=== PATIENT | male | born 1965 | race Two or more races ===

== ENCOUNTER 2018-03-19 18:22 | Emergency (ER) | payer MEDICAID, OTHER ==
[~2018-03-19] VITALS: Ht 167.6 cm; Wt 65.8 kg
[2018-03-19] MEDS ORDERED: SODIUM CHLORIDE 0.9% 1,000 ML IV ONE (18:49)
[2018-03-19] MEDS: SODIUM CHLORIDE 0.9% 1,000 ML IV ONE ×2 (18:56→19:15)
[2018-03-19] MEDS ORDERED: LORazepam 2MG/ML-1ML VIAL IV ONE (19:00)
[2018-03-19] MEDS ORDERED: ASPirin 81 mg TAB PO ONE (19:15)
[2018-03-19 19:23] LABS: Basophils # (auto) 0 uL; Basophils % (auto) 0.4 % (0.0-2.0); Eosinophils # (auto) 0.1 uL; Eosinophils % (auto) 2.1 % (0.0-7.0); Hematocrit 44.3 % (41.0-53.0); Hemoglobin 15.1 g/dL (13.5-17.5); Lymphocytes # (auto) 1.2 uL; Lymphocytes % (auto) 27.9 % (10.0-50.0); Mean Corpuscular Hemoglobin 31.4 pg (28.0-32.0); Mean Corpuscular Hgb Conc. 34.1 g/dL (32.0-36.0); Monocytes # (auto) 0.3 uL; Neutrophils # (auto) 2.8 uL; Neutrophils % (auto) 63.6 % (37.0-80.0); Platelet Count (auto) 145 10^3/uL (140-450); Red Blood Cells 4.81 10^6/uL (4.5-5.90); Red Cell Distribution Width 13.6 % (11.8-14.3); White Blood Cell 4.4 10^3/uL (4.4-10.8)
[2018-03-19 19:29] VITALS: BP 108/71
[2018-03-19 19:33] LABS: Alanine Aminotransferase 21 U/L (16-61); Albumin 4.4 g/dL (3.4-5.0); Anion Gap 10 (5-15); Aspartate Aminotransferase 11 U/L (15-37); BUN/Creatinine Ratio 21.8; Blood Alcohol < 3.0 mg/dL (0-5); Blood Urea Nitrogen 19 mg/dL (7-18); Calcium 8.7 mg/dL (8.5-10.1); Carbon Dioxide 22 mmol/L (21-32); Chloride 104 mmol/L (98-107); GFR African American 119 mL/min; GFR Non-African American 98 mL/min; Glucose 138 mg/dL (74-106); Sodium 136 mmol/L (136-145)
[2018-03-19 19:38] LABS: Alkaline Phosphatase 71 U/L (45-117); Bilirubin, Total 0.9 mg/dL (0.2-1.0); Total Protein 8.4 g/dL (6.4-8.2)
[2018-03-19 19:47] LABS: Potassium 2.7 mmol/L (3.5-5.1)
== END 2018-03-19 20:00 | disposition home or self-care (01) ==
LOC: ER 18:27
DX: F41.9 Anxiety disorder, unspecified (principal); E87.6 Hypokalemia; I10 Essential (primary) hypertension; F14.10 Cocaine abuse, uncomplicated; R11.2 Nausea with vomiting, unspecified
CPT/HCPCS: 36415; 71045; 80053; 80320; 84484; 85025; 93005; 94761; 96361; 96374; 99284; J2060; J7030

== ENCOUNTER 2022-04-20 10:41 | Emergency (ER) | payer MEDICAID ==
[~2022-04-20] VITALS: Ht 167.6 cm; Wt 68.1 kg
[2022-04-20 11:50] VITALS: BP 102/62
[2022-04-20] MEDS ORDERED: KETOROLAC TROMETH 30 MG/ML 1ML VIAL IM ONE (12:00)
[2022-04-20] MEDS ORDERED: LIDO5DIS21 TOP (12:01)
[2022-04-20] MEDS ORDERED: IBUP600T28 PO (12:01)
[2022-04-20] MEDS ORDERED: CYCL-839 PO (12:01)
== END 2022-04-20 13:40 | disposition home or self-care (01) ==
LOC: ER 10:41
DX: M75.32 Calcific tendinitis of left shoulder (principal); I10 Essential (primary) hypertension; F15.90 Other stimulant use, unspecified, uncomplicated; Z79.899 Other long term (current) drug therapy
CPT/HCPCS: 73030; 96372; 99283; J1885

== ENCOUNTER 2025-02-19 11:36 | Emergency (ER) | payer MEDICAID ==
[~2025-02-19] VITALS: Ht 167.6 cm; Wt 117.5 kg
[~2025-02-19 11:36] MED LIST: CYCL-839 PO; IBUP1TAB5 PO; LIDO5DIS21 TOP
[2025-02-19 13:23] VITALS: BP 111/80; PULSE 61; RESP 16; TEMP 98.3; O2SAT 94
[2025-02-19 13:40] LABS: Hematocrit 36.8 % (41.0-53.0); Hemoglobin 12.7 g/dL (13.5-17.5); Mean Corpuscular Hemoglobin 31.2 pg (28.0-32.0); Mean Corpuscular Volume 90.6 fL (80.0-100.0); Nucleated Red Blood Cells % 0.0 %
[2025-02-19 13:57] LABS: Chloride 101 mmol/L (98-107); Potassium 3.9 mmol/L (3.5-5.1); Sodium 139 mmol/L (136-145)
[2025-02-19 13:58] LABS: Anion Gap 10 (5-15); Calcium 9.8 mg/dL (8.7-10.4); Carbon Dioxide 28 mmol/L (20-31)
[2025-02-19 14:03] LABS: BUN/Creatinine Ratio 21.5 (10.0-20.0); Blood Urea Nitrogen 14 mg/dL (9-23)
[2025-02-19 14:09] LABS: Glucose 108 mg/dL (74-106)
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
[2025-02-19 15:36] LABS: Urine Protein, UAD Negative (Negative)
[2025-02-19] MEDS ORDERED: NAPR-957 PO (16:42)
[2025-02-19] MEDS ORDERED: CEFD300C2 PO (16:42)
== END 2025-02-19 16:40 | disposition home or self-care (01) ==
LOC: ER 11:36
DX: N45.1 Epididymitis (principal); G82.20 Paraplegia, unspecified; I10 Essential (primary) hypertension
CPT/HCPCS: 36415; 80048; 81001; 85025